=== PATIENT | male | born 1965 ===

== ENCOUNTER → 2017-09-01 | Outpatient (CLI) | payer OTHER | LOC: HYPER 06:57 | DX: T81.89XA Other complications of procedures, not elsewhere classified, initial encounter (principal); F32.9 Major depressive disorder, single episode, unspecified; Y83.8 Other surgical procedures as the cause of abnormal reaction of the patient, or of later complication, without mention of misadventure at the time of the procedure; Y92.89 Other specified places as the place of occurrence of the external cause ==